=== PATIENT | male | born 1965 | race Caucasian/White ===

== ENCOUNTER 2023-07-29 10:08 | Outpatient (CLI) | payer MEDICAID, OTHER | END 2023-07-29 10:09 | disposition critical access hospital (66) | LOC: EMS 10:08 | DX: R73.9 Hyperglycemia, unspecified (principal); R53.83 Other fatigue; R25.1 Tremor, unspecified; R35.0 Frequency of micturition; R63.1 Polydipsia; R00.0 Tachycardia, unspecified; R06.82 Tachypnea, not elsewhere classified | CPT/HCPCS: A0425; A0429 ==

== ENCOUNTER 2023-07-29 10:28 | Inpatient (IN) | payer MEDICAID, OTHER ==
--- NOTE | 2023-07-29 10:43 | ED Physician Documentation ---
PD HPI ALTERED MENTAL STATUS - Stated complaint Stated Complaint: AMS/HIGH GLUCOSE - Chief complaint Chief Complaint: Neuro - History obtained from History obtained from: Patient, EMS - Additional information Additional information: Patient is a 57-year-old male with no significant past medical history presenting for evaluation of altered mental status for the past 1 week. Per EMS he lives in [facility] and is here visiting family and arrived a week ago. They thought he was just jet lag but has reportedly been more tired and having increasing urination over the last week. This morning though family was concerned and called EMS. EMS noted that his blood sugar was reading as high and that he was tachypneic in the 50s.Patient denies fever, cough, chest pain or shortness of air. No abdominal pain, vomiting or diarrhea. Does report increased thirst and urination which has been going on for at least 2 months. Review of Systems Constitutional: denies: Fever Cardiac: denies: Chest pain / pressure Respiratory: denies: Dyspnea GI: denies: Abdominal Pain PD PAST MEDICAL HISTORY - Present Medications Home Medications: Ambulatory Orders Medication Instructions Recorded Confirmed No Known Home Medications 07/29/23 07/29/23 - Allergies Allergies/Adverse Reactions: Allergies Allergy/AdvReac Type Severity Reaction Status Date / Time Penicillins Allergy Severe Anaphylaxis Verified 07/29/23 15:45 bee venom protein (honey bee) Allergy Intermediate Hives Verified 07/29/23 15:46 PD ED PE NORMAL - General General: No acute distress, Well developed/nourished. No: Alert and oriented X 3 (Alert and oriented to person and place; Confused on month but not year) - HEENT HEENT: Atraumatic, PERRL, EOMI, Moist mucous membranes, Pharynx benign - Neck Neck: Supple, no meningeal sign - Cardiac Cardiac: Other (Tachycardic, regular rhythm) - Respiratory Respiratory: No respiratory distress, Clear bilaterally - Abdomen Abdomen: Normal bowel sounds, Soft, Non tender, Non distended - Derm Derm: Warm and dry - Extremities Extremities: No edema, No calf tenderness / cord - Neuro Neuro: Alert and oriented X 3, er rn 2-12 intact, No motor deficit, No sensory deficit, Normal speech Results - Vitals Vitals: Vital Signs - 24 hr 07/29/23 07/29/23 07/29/23 10:35 11:10 11:12 Temperature 36.7 C Heart Rate 117 H 100 Respiratory 16 29 H Rate Blood Pressure 116/82 H 126/86 H O2 Saturation 96 87 L 93 If not protocol 2 : Oxygen Flow, liters/minute 07/29/23 07/29/23 07/29/23 11:30 12:00 12:21 Temperature Heart Rate 111 H 106 H 108 H Respiratory 26 H 32 H 27 H Rate Blood Pressure 151/90 H 121/90 H 127/90 H O2 Saturation 100 91 L 96 If not protocol 2 2 2 : Oxygen Flow, liters/minute Oxygen O2 Source Nasal cannula Oxygen Flow Rate 2 - EKG (time done) 1051 EKG releavant findings:: EKG personally interpreted by author of this note. Relevant findings are: Rate 110, sinus tachycardia, no STEMI, QTc 478, no prior for comparison - Labs Labs: Laboratory Tests 07/29/23 07/29/23 07/29/23 10:45 10:45 10:55 WBC 11.4 H RBC 5.02 Hgb 15.4 Hct 47.6 MCV 94.8 H MCH 30.7 MCHC 32.4 RDW 13.0 Plt Count 280 MPV 11.7 H Neut # (Auto) 8.9 H Lymph # (Auto) 1.6 [place] # (Auto) 0.9 Eos # (Auto) 0.0 Baso # (Auto) 0.1 Absolute Nucleated RBC 0.00 Nucleated RBC % 0.0 VBG pH VBG pCO2 VBG pO2 VBG HCO3 VBG Total CO2 VBG O2 Saturation VBG Base Excess Sodium Potassium Chloride Carbon Dioxide Anion Gap BUN Creatinine Estimated GFR (MDRD) Glucose Lactic Acid Calcium Magnesium Total Bilirubin AST ALT Alkaline Phosphatase Troponin I High Sens B-Natriuretic Peptide Total Protein Albumin Globulin Albumin/Globulin Ratio Lipase Urine Color Urine Clarity Urine pH Ur Specific [place] Urine Protein Urine Glucose (UA) Urine Ketones Urine Occult Blood Urine Nitrite Urine Bilirubin Urine Urobilinogen Ur Leukocyte Esterase Urine RBC Urine WBC Ur Squamous Epith Cells Urine Bacteria Ur Microscopic Review Urine Culture Comments Nasal Adenovirus (PCR) NOT DETECTED Nasal B. parapertussis DNA (PCR) NOT DETECTED Nasal Coronavir 229E PCR NOT DETECTED Nasal Coronavir HKU1 PCR NOT DETECTED Nasal Coronavir NL63 PCR NOT DETECTED Nasal Coronavir OC43 PCR NOT DETECTED Nasal Enterovir/Rhinovir PCR NOT DETECTED Nasal Influ A H1 2009 PCR DETECTED A Nasal Influenza B PCR NOT DETECTED Nasal Parainfluen 1 PCR NOT DETECTED Nasal Parainfluen 2 PCR NOT DETECTED Nasal Parainfluen 3 PCR NOT DETECTED Nasal Parainfluen 4 PCR NOT DETECTED Nasal RSV (PCR) NOT DETECTED Nasal B.pertussis DNA PCR NOT DETECTED Nasal C.pneumoniae (PCR) NOT DETECTED Marlon Human Metapneumo PCR NOT DETECTED Nasal M.pneumoniae (PCR) NOT DETECTED Nasal SARS-CoV-2 (PCR) NOT DETECTED Salicylates Urine Opiates Screen NEGATIVE Ur Buprenorphine Scrn NEGATIVE Ur Oxycodone Screen NEGATIVE Urine Methadone Screen NEGATIVE Acetaminophen Ur Barbiturates Screen NEGATIVE Ur Tricyclics Screen NEGATIVE Ur Phencyclidine Scrn NEGATIVE Ur Amphetamine Screen NEGATIVE U Methamphetamines Scrn NEGATIVE U Benzodiazepines Scrn NEGATIVE Urine Cocaine Screen NEGATIVE U Cannabinoids Screen NEGATIVE Ur Drug Screen Comment CUTOFF CONC BELOW: Ethyl Alcohol Serum Ketones 07/29/23 07/29/23 07/29/23 10:55 10:55 10:55 WBC RBC Hgb Hct MCV MCH MCHC RDW Plt Count MPV Neut # (Auto) Lymph # (Auto) [place] # (Auto) Eos # (Auto) Baso # (Auto) Absolute Nucleated RBC Nucleated RBC % VBG pH 7.347 VBG pCO2 42.3 VBG pO2 34.3 VBG HCO3 22.7 L VBG Total CO2 24.0 VBG O2 Saturation 66.7 VBG Base Excess -2.9 L Sodium 143 Potassium 5.0 H Chloride 104 Carbon Dioxide 26 Anion Gap 13.0 BUN 42 H Creatinine 1.7 H Estimated GFR (MDRD) 42 L Glucose 1138 H* Lactic Acid 3.5 H* Calcium 11.5 H Magnesium 2.8 H Total Bilirubin 0.7 AST 34 ALT 38 Alkaline Phosphatase 163 H Troponin I High Sens B-Natriuretic Peptide Total Protein 7.9 Albumin 4.3 Globulin 3.6 Albumin/Globulin Ratio 1.2 Lipase 84 H Urine Color Urine Clarity Urine pH Ur Specific [place] Urine Protein Urine Glucose (UA) Urine Ketones Urine Occult Blood Urine Nitrite Urine Bilirubin Urine Urobilinogen Ur Leukocyte Esterase Urine RBC Urine WBC Ur Squamous Epith Cells Urine Bacteria Ur Microscopic Review Urine Culture Comments Nasal Adenovirus (PCR) Nasal B. parapertussis DNA (PCR) Nasal Coronavir 229E PCR Nasal Coronavir HKU1 PCR Nasal Coronavir NL63 PCR Nasal Coronavir OC43 PCR Nasal Enterovir/Rhinovir PCR Nasal Influ A H1 2009 PCR Nasal Influenza B PCR Nasal Parainfluen 1 PCR Nasal Parainfluen 2 PCR Nasal Parainfluen 3 PCR Nasal Parainfluen 4 PCR Nasal RSV (PCR) Nasal B.pertussis DNA PCR Nasal C.pneumoniae (PCR) Marlon Human Metapneumo PCR Nasal M.pneumoniae (PCR) Nasal SARS-CoV-2 (PCR) Salicylates < 1.5 Urine Opiates Screen Ur Buprenorphine Scrn Ur Oxycodone Screen Urine Methadone Screen Acetaminophen 0.2 Ur Barbiturates Screen Ur Tricyclics Screen Ur Phencyclidine Scrn Ur Amphetamine Screen U Methamphetamines Scrn U Benzodiazepines Scrn Urine Cocaine Screen U Cannabinoids Screen Ur Drug Screen Comment Ethyl Alcohol < 10.0 Serum Ketones 07/29/23 07/29/23 07/29/23 10:55 10:55 11:05 WBC RBC Hgb Hct MCV MCH MCHC RDW Plt Count MPV Neut # (Auto) Lymph # (Auto) [place] # (Auto) Eos # (Auto) Baso # (Auto) Absolute Nucleated RBC Nucleated RBC % VBG pH VBG pCO2 VBG pO2 VBG HCO3 VBG Total CO2 VBG O2 Saturation VBG Base Excess Sodium Potassium Chloride Carbon Dioxide Anion Gap BUN Creatinine Estimated GFR (MDRD) Glucose Lactic Acid Calcium Magnesium Total Bilirubin AST ALT Alkaline Phosphatase Troponin I High Sens 23.9 H* B-Natriuretic Peptide 42 Total Protein Albumin Globulin Albumin/Globulin Ratio Lipase Urine Color LIGHT YELLOW Urine Clarity CLEAR Urine pH 6.0 Ur Specific [place] <=1.005 Urine Protein NEGATIVE Urine Glucose (UA) >=1000 H Urine Ketones TRACE Urine Occult Blood LARGE H Urine Nitrite NEGATIVE Urine Bilirubin NEGATIVE Urine Urobilinogen 0.2 (NORMAL) Ur Leukocyte Esterase NEGATIVE Urine RBC 0-5 Urine WBC 0-3 Ur Squamous Epith Cells FEW Squamous Urine Bacteria Few Ur Microscopic Review INDICATED Urine Culture Comments NOT INDICATED Nasal Adenovirus (PCR) Nasal B. parapertussis DNA (PCR) Nasal Coronavir 229E PCR Nasal Coronavir HKU1 PCR Nasal Coronavir NL63 PCR Nasal Coronavir OC43 PCR Nasal Enterovir/Rhinovir PCR Nasal Influ A H1 2009 PCR Nasal Influenza B PCR Nasal Parainfluen 1 PCR Nasal Parainfluen 2 PCR Nasal Parainfluen 3 PCR Nasal Parainfluen 4 PCR Nasal RSV (PCR) Nasal B.pertussis DNA PCR Nasal C.pneumoniae (PCR) [place]lon Human Metapneumo PCR Nasal M.pneumoniae (PCR) Nasal SARS-CoV-2 (PCR) Salicylates Urine Opiates Screen Ur Buprenorphine Scrn Ur Oxycodone Screen Urine Methadone Screen Acetaminophen Ur Barbiturates Screen Ur Tricyclics Screen Ur Phencyclidine Scrn Ur Amphetamine Screen U Methamphetamines Scrn U Benzodiazepines Scrn Urine Cocaine Screen U Cannabinoids Screen Ur Drug Screen Comment Ethyl Alcohol Serum Ketones 07/29/23 07/29/23 11:05 12:52 WBC RBC Hgb Hct MCV MCH MCHC RDW Plt Count MPV Neut # (Auto) Lymph # (Auto) [place] # (Auto) Eos # (Auto) Baso # (Auto) Absolute Nucleated RBC Nucleated RBC % VBG pH VBG pCO2 VBG pO2 VBG HCO3 VBG Total CO2 VBG O2 Saturation VBG Base Excess Sodium Potassium Chloride Carbon Dioxide Anion Gap BUN Creatinine Estimated GFR (MDRD) Glucose 869 H* Lactic Acid Calcium Magnesium Total Bilirubin AST ALT Alkaline Phosphatase Troponin I High Sens B-Natriuretic Peptide Total Protein Albumin Globulin Albumin/Globulin Ratio Lipase Urine Color Urine Clarity Urine pH Ur Specific [place] Urine Protein Urine Glucose (UA) Urine Ketones Urine Occult Blood Urine Nitrite Urine Bilirubin Urine Urobilinogen Ur Leukocyte Esterase Urine RBC Urine WBC Ur Squamous Epith Cells Urine Bacteria Ur Microscopic Review Urine Culture Comments Nasal Adenovirus (PCR) Nasal B. parapertussis DNA (PCR) Nasal Coronavir 229E PCR Nasal Coronavir HKU1 PCR Nasal Coronavir NL63 PCR Nasal Coronavir OC43 PCR Nasal Enterovir/Rhinovir PCR Nasal Influ A H1 2009 PCR Nasal Influenza B PCR Nasal Parainfluen 1 PCR Nasal Parainfluen 2 PCR Nasal Parainfluen 3 PCR Nasal Parainfluen 4 PCR Nasal RSV (PCR) Nasal B.pertussis DNA PCR Nasal C.pneumoniae (PCR) [place] Human Metapneumo PCR Nasal M.pneumoniae (PCR) Nasal SARS-CoV-2 (PCR) Salicylates Urine Opiates Screen Ur Buprenorphine Scrn Ur Oxycodone Screen Urine Methadone Screen Acetaminophen Ur Barbiturates Screen Ur Tricyclics Screen Ur Phencyclidine Scrn Ur Amphetamine Screen U Methamphetamines Scrn U Benzodiazepines Scrn Urine Cocaine Screen U Cannabinoids Screen Ur Drug Screen Comment Ethyl Alcohol Serum Ketones SMALL H PD Medical Decision Making - ED course Complexity details: reviewed results, re-evaluated patient, d/w patient, d/w family ED course: Pt with AMS. Lives in [place] and visiting family for 1 week. Tachycardic, afebrile. Answers some questions appropriately but otherwise appears confused. EMS noted high blood sugar. No history of DM. Labs including BC x 2, lactic, CBC, chemistries, troponin, BNP, resp swab, UA, tox labs, vbg reviewed. Significant for glucose of 1137. Does not appear to be in DKA. K 5, Mg 2.8. VBG with normal pH, small serum ketones. Likely HHS. Chest XR negative for pneumonia. No UTI. +Flu. CT head negative for bleed. CT Angio chest ordered as pt became hypoxic. No PE or infiltrate. Incident nodules which were discussed with pt and mother at bedside. Pt given 2L IV fluids and started on insulin. D/W Dr. Cook who will admit to ICU for further management. 1300 - Reviewed workup results with patient and his mother at the bedside. Patient gave permission to speak also with his mother present. Aware of incidental findings of right lung nodule seen on CT scan. Patient does smoke cigarettes. Patient and mother are aware that he needs a repeat scan in the next 12 months to Monitor the nodules. - Critical Care Time(min): 41 Time Includes: Direct patient care, Reassess patient, Document care Data interpretation: Labs, CXR, See progress note Departure - Departure Disposition: 66 [facility] DC/Xfer Clinical Impression: Hyperosmolar hyperglycemic state (HHS), Influenza A (H1N1), Acute respiratory failure with hypoxia, Altered mental status, Pulmonary nodules Condition: Critical Discharge Date/Time: 07/29/23 13:42
[2023-07-29] MEDS: SODIUM CHLORIDE 0.9% 2,000 ML IV STA (10:44)
[2023-07-29 11:05] LABS: VBG PCO2 42.3 mmHg (41-51); VBG PH 7.347 (7.31-7.41); VBG PO2 34.3 mmHg (25-47)
[2023-07-29 11:06] LABS: BASOPHILS # (AUTO) 0.1 10^3/uL (0.0-0.1); BASOPHILS % (AUTO) 0.4 %; HCT - HEMATOCRIT 47.6 % (42.0-52.0); HGB - HEMOGLOBIN 15.4 g/dL (14.0-18.0); LYMPHOCYTES # (AUTO) 1.6 10^3/uL (1.5-3.5); LYMPHOCYTES % (AUTO) 13.7 %; MEAN CORPUSCULAR HEMOGLOBIN 30.7 pg (27.0-31.0); MEAN CORPUSCULAR HGB CONC 32.4 g/dL (32.0-36.0); MEAN CORPUSCULAR VOLUME 94.8 fL (80.0-94.0); MEAN PLATELET VOLUME 11.7 fL (7.4-11.4); MONOCYTES # (AUTO) 0.9 10^3/uL (0.0-1.0); MONOCYTES % (AUTO) 7.8 %; NEUTROPHILS # (AUTO) 8.9 10^3/uL (1.5-6.6); NEUTROPHILS % (AUTO) 77.6 %; PLT - PLATELET COUNT 280 10^3/uL (130-450); RED BLOOD COUNT 5.02 10^6/uL (4.70-6.10); VBG BASE EXCESS -2.9 mmol/L (-2 - +2); VBG HCO3 22.7 mmol/L (23-28); VBG OXYGEN SATURATION 66.7 % (60-80); WHITE BLOOD COUNT 11.4 x10^3/uL (4.8-10.8)
[2023-07-29 11:16] LABS: BILIRUBIN,URINE NEGATIVE (NEGATIVE); GLUCOSE, URINE (UA) >=1000 mg/dL (NEGATIVE); KETONES,URINE (UA) TRACE mg/dL (NEGATIVE); LEUKOCYTE ESTERASE, URINE NEGATIVE (NEGATIVE); NITRITE,URINE NEGATIVE (NEGATIVE); OCCULT BLOOD,URINE LARGE (NEGATIVE); PROTEIN,URINE NEGATIVE (NEGATIVE); UROBILINOGEN,URINE 0.2 (NORMAL) E.U./dL (NORMAL)
[2023-07-29 11:18] LABS: ACETAMINOPHEN 0.2 ug/mL; ETOH - ETHANOL < 10.0 mg/dL; LIPASE 84 U/L (11-82); MAGNESIUM 2.8 mg/dL (1.7-2.3)
[2023-07-29 11:19] LABS: CLARITY,URINE CLEAR (CLEAR)
[2023-07-29 11:24] LABS: AMPHETAMINE SCREEN,URINE NEGATIVE (NEGATIVE); BARBITURATE SCREEN,UR NEGATIVE (NEGATIVE); BENZODIAZEPINES SCREEN, URINE NEGATIVE (NEGATIVE); BUPRENORPHINE SCREEN, URINE NEGATIVE (NEGATIVE); COCAINE SCREEN URINE NEGATIVE (NEGATIVE); METHADONE SCREEN, URINE NEGATIVE (NEGATIVE); METHAMPHETAMINES SCREEN, URINE NEGATIVE (NEGATIVE); OPIATE SCREEN, URINE NEGATIVE (NEGATIVE); OXYCODONE SCREEN, URINE NEGATIVE (NEGATIVE); THC CANNABINOID SCREEN, URINE NEGATIVE (NEGATIVE); TRICYCLIC ANTIDEPRESSANT,URINE NEGATIVE (NEGATIVE)
[2023-07-29 11:29] LABS: BACTERIA,URINE Few /HPF (None Seen); RBC,URINE 0-5 /HPF (0-5); SQUAMOUS EPITHELIAL CELL,UR FEW Squamous (<= Few); WBC,URINE 0-3 /HPF (0-3)
--- NOTE | 2023-07-29 11:29 | XRAY Report ---
PROCEDURE: Chest 1V INDICATIONS: AMS/DKA TECHNIQUE: One view of the chest was acquired. COMPARISON: None. FINDINGS: Surgical changes and devices: None. Lungs and pleura: No pleural effusions or pneumothorax. Patchy bibasilar atelectasis versus pneumoni a. Mediastinum: Mediastinal contours appear normal. Heart size is normal. Bones and chest wall: No suspicious bony lesions. Overlying soft tissues appear unremarkable. IMPRESSION: Patchy bibasilar atelectasis versus pneumonia. Progress films are recommended until clear. Reviewed by: Finesse Darby MD on 07/29/2023 11:27 AM PDT Approved by: Finesse Darby MD on 07/29/2023 11:27 AM PDT Station ID: [id number]
[2023-07-29 11:30] LABS: ALBUMIN 4.3 g/dL (3.2-5.5); ALBUMIN/GLOBULIN RATIO 1.2 (1.0-2.2); ALKALINE PHOSPHATASE 163 IU/L (42-121); ALT ALANINE AMINOTRANSFERASE 38 IU/L (10-60); AST ASPARTATE AMINOTRANSFERASE 34 IU/L (10-42); BILIRUBIN,TOTAL 0.7 mg/dL (0.2-1.0); BUN - BLOOD UREA NITROGEN 42 mg/dL (6-20); CALCIUM 11.5 mg/dL (8.5-10.3); CARBON DIOXIDE - CO2 26 mmol/L (21-32); CHLORIDE 104 mmol/L (101-111); CREATININE 1.7 mg/dL (0.6-1.3); GFR - MDRD 42 (>89); GLUCOSE 1138 mg/dL (74-104); SALICYLATE < 1.5 mg/dL; SODIUM 143 mmol/L (135-145); TOTAL PROTEIN 7.9 g/dL (6.4-8.9)
[2023-07-29] MEDS ORDERED: iohexoL-300 100 ML VIAL ONE (11:38)
[2023-07-29] MEDS ORDERED: INSULIN REGULAR IN 0.9 % NS 100 UNIT/100 ML BAG IV ONE (11:43)
[2023-07-29] MEDS: INSULIN REGULAR HUMAN 300 UNIT/3 ML VIAL IVP STA (11:45)
[2023-07-29] MEDS: INSULIN REGULAR IN 0.9 % NS 100 UNIT/100 ML BAG IV STA ×2 (11:47→13:50)
[2023-07-29 12:00] LABS: B. PARAPERTUSSIS- RESP PCR PAN NOT DETECTED; B. PERTUSSIS- RESP PCR PANEL NOT DETECTED; C. PNEUMONIAE- RESP PCR PANEL NOT DETECTED; CORONAVIRUS 229E-RESP PCR NOT DETECTED; CORONAVIRUS HKU1-RESP PCR NOT DETECTED; CORONAVIRUS NL63-RESP PCR NOT DETECTED; CORONAVIRUS OC43-RESP PCR NOT DETECTED; HUMAN METAPNEUMOVIRUS NOT DETECTED; INFLUENZA A H1 2009- RESP PCR DETECTED; INFLUENZA B - RESP PCR PANEL NOT DETECTED; M. PNEUMONIAE- RESP PCR PANEL NOT DETECTED; PARAINFLUENZA VIRUS 1 NOT DETECTED; PARAINFLUENZA VIRUS 2 NOT DETECTED; PARAINFLUENZA VIRUS 3 NOT DETECTED; PARAINFLUENZA VIRUS 4 NOT DETECTED; RHINOVIRUS/ENTEROVIRUS NOT DETECTED; RSV- RESP PCR PANEL NOT DETECTED; SARS-CoV-2 -RESP PCR PANEL NOT DETECTED
--- NOTE | 2023-07-29 12:24 | CT Report ---
PROCEDURE: Head WO INDICATIONS: AMS/DKA TECHNIQUE: Noncontrast 4.5 mm thick angled axial sections acquired from the foramen magnum to the vertex. For r adiation dose reduction, the following was used: automated exposure control, adjustment of mA and/or kV according to patient size. COMPARISON: None. FINDINGS: Image quality: Excellent. CSF spaces: Basal cisterns are patent. No extra-axial fluid collections. Ventricles are normal in size and shape. Brain: No midline shift. No intracranial masses or hemorrhage. Springer-white matter interface is norm al. Skull and face: Calvarium and visualized facial bones are intact, without suspicious lesions. Sinuses: Visualized sinuses and mastoids are clear. IMPRESSION: No acute intracranial pathology. Reviewed by: Russell Salmon MD on 07/29/2023 12:23 PM PDT Approved by: Russell Salmon MD on 07/29/2023 12:23 PM PDT Station ID: [id number]
--- NOTE | 2023-07-29 12:42 | CT Report ---
PROCEDURE: Angio Chest INDICATIONS: SOA/AMS/hypoxia CONTRAST: Omni 300 80ml TECHNIQUE: After the administration of intravenous contrast, 2 mm axial images were acquired from the pulmonary apices to the posterior costophrenic angles during the arterial phase. In addition, 1 mm lung kernel and 5 mm soft tissue kernel reconstructions were performed. 3-dimensional coronal oblique maximum int ensity projection (MIP) reformats, 8 mm axial MIP, and 5 mm coronal and sagittal MPR reformats were t hen performed through the thorax. For radiation dose reduction, the following was used: automated exp osure control, adjustment of mA and/or kV according to patient size. COMPARISON: None. FINDINGS: Image quality: Excellent. Large vessels: No filling defects within the opacified pulmonary arteries, accounting for motion and contrast timing. No evidence of acute aortic syndrome or aortic aneurysm. Lungs and pleura: No consolidation. No pleural effusions. No pneumothorax. Scattered 2 mm nodules in the right lung are too small to characterize. Mediastinum: Heart size is normal. No pericardial effusion. No large vessel abnormality. No mediastin al adenopathy by size criteria. Chest wall and lower neck: Thyroid is unremarkable. No axillary or supraclavicular adenopathy by size . Bones: No aggressive osseous abnormality. Upper Abdomen: Unremarkable. IMPRESSION: 1. No acute pulmonary blood. 2. No acute pulmonary process. 3. Scattered tiny 2 mm nodules in the right lung, too small to characterize, statistically likely to be benign. Comment: If patient has risk factors for malignancy, consider 12 month follow-up CT chest. Reviewed by: Finesse Darby MD on 07/29/2023 12:41 PM PDT Approved by: Finesse Darby MD on 07/29/2023 12:41 PM PDT Station ID: [id number]
[2023-07-29] MEDS ORDERED: ACETAMINOPHEN 325 MG TABLET PO PRN (13:05)
[2023-07-29] MEDS ORDERED: ONDANSETRON ODT 4 MG TABLET TL PRN (13:05)
[2023-07-29] MEDS ORDERED: oxyCODONE 5 MG TABLET PO PRN (13:05)
[2023-07-29] MEDS ORDERED: ONDANSETRON 4 MG/2 ML VIAL IVP PRN (13:05)
--- NOTE | 2023-07-29 13:24 | PHARMACY PROGRESS NOTE ---
- Best Possible Medication History Admit Date and Time: 07/29/23 7808 Processed by: Nursing Medications reviewed in ED?: Yes Medication History completed: Yes Patient Interview: Completed As the person ultimately responsible for medication therapy, providers are able to order a medication from an existing home medication list in [facility] via the "Reconcile Routine" prior to Confirmation of that medication by support associate. Such practice is discouraged except when the physician, in their clinical judgment, deems that a medical need exists for a medication without regard to previous use.
[2023-07-29] MEDS ORDERED: INSULIN REGULAR IN 0.9 % NS 100 UNIT/100 ML BAG IV SCH (14:00)
[2023-07-29] MEDS: PANTOPRAZOLE 40 MG TABLET PO SCH (14:17)
[2023-07-29] MEDS: SODIUM CHLORIDE FLUSH 0.9% 10 ML SYRINGE IVP PRN (14:23)
[2023-07-29] MEDS: SODIUM CHLORIDE 0.9% 1,000 ML IV SCH (14:23)
[2023-07-29] MEDS: iohexoL-300 100 ML VIAL IVP ONE (14:44)
[2023-07-29 14:51] LABS: VBG BASE EXCESS -1.3 mmol/L (-2 - +2); VBG HCO3 23.4 mmol/L (23-28); VBG OXYGEN SATURATION 76.5 % (60-80); VBG PCO2 39.7 mmHg (41-51); VBG PH 7.389 (7.31-7.41); VBG PO2 37.8 mmHg (25-47); VBG TOTAL CO2 24.7 mmol/L (24-29)
[2023-07-29 15:31] LABS: MAGNESIUM 2.9 mg/dL (1.7-2.3); PHOSPHORUS 2.2 mg/dL (2.5-5.0)
[2023-07-29] MEDS: NEUTRA-PHOS 250 MG TABLET PO SCH (16:22)
[2023-07-29] MEDS: POTASSIUM CHLOR 10 MEQ/100 ML 10 MEQ/100 ML BAG IV ONE (16:24)
--- NOTE | 2023-07-29 17:00 | HISTORY & PHYSICAL EXAMINATION ---
Chief Complaint - Chief Complaint Chief Complaint: Altered mental status, memory loss, polydipsia, polyphagia, polyuria History of Present Illness - Admitted From Admitted From:: Father's house via EMS - History Obtained From Records Reviewed: [facility] History obtained from: Dr. Rashid and the patient Exam Limitations: Word finding difficulties, scattered thought process - History of Present Illness HPI Comment/Other: This is a gentleman who lives in one of the [facility] in [facility] and just got back July 20. He is here to visit his dad. Dad's been failing with vascular dementia. He was brought in by EMS because family has noted that his speech has become delayed. He was getting confused with words, dates, and events. The patient tells me that he is healthy. He has no history of diabetes, high blood pressure, cholesterol problems. He has never been hospitalized. He has lived in [place] for approximately 12 to 13 years. He is to an national. She is unable to have children and he decided to moved to [facility] to be near her family after he retired so that she could run an orphanage. They have about 45 kids. For approximately 3 months he has noted a dry mouth. A parched tongue. For about 2 months he has noted hoarseness. The only thing that would soothe his mouth was ice cream. And his thirst was quenched with lots of juice. He is also been eating a lot of fast food. He saw a friend of his in [facility] who is an physician and he describes a laryngoscopy. They looked at his vocal cords and everything was "normal". He has severe increased urinary frequency. He also has incontinence and urgency. He will literally hold onto the tip of his penis and pinch it so that urine does not come out but he has not been making it to the toilet for quite some time. That started in the last 2 weeks. He denies fever, chills. He has had a phlegmy cough for a few days. The cough is occasionally quite copious. He is hoarseness comes and goes depending on the cough. For a few moments his voice will clear even though he speaks with a laryngitic tone, but then it completely disappears when the phlegm comes. There is been no unexpected weight changes with this. No sweats, no fevers. He acknowledges that his mentation is not correct. He says he has been struggling with words. But he denies focal deficits. Denies facial dysesthesias. His legs are numb but they have been numb "forever" but he cannot remember why. He his belly feels full and distended. Feels like he has not a bowel movement in a few days. But no abdominal pain. EMS brought him to the emergency room when family was concerned. Temperature was 36.7, heart rate 117, blood pressure 116/82, respirations 16 and he is 96% saturated on room air. He is a 6 foot tall white male, well-groomed, well-adal shed, 102.5 kg. His main fixation is water. He cannot get enough water and ice. The ER provider described him as well-nourished well-developed. Alert and oriented x 3. Confused on the month but not the year. She describes moist mucous membranes but I find and be very dry. Supple neck. Tachycardic. Clear lungs. A soft nontender abdomen. Nondistended with normal bowel sounds. No calf tenderness. White cell count is 11.4. Hemoglobin 15.4. Platelets 280. Potassium 5.0. BUN 42, creatinine 1.7. Glucose is 1138. Lactic acid 3.5. Calcium 11.5. Magnesium 2.8. Troponin 23.9. Lipase 84. Urinalysis ask glucosuria, occult blood, trace ketones. No bacteria. No culture will be done. Venous blood gas has a pH of 7.34, pCO2 42, bicarb 22 base excess -2.9. Viral panel swab is positive for influenza A. Toxicology screen is negative for opiates, barbiturates, amphetamines, can nabinoids, ethyl alcohol, and serum ketones are small amount. Chest x-ray has patchy bibasilar atelectasis versus pneumonia. They are recommending a repeat film until he is clear. Head CT was done because of the altered mental status and there is no acute intracranial pathology. Because of altered mental status with hypoxia in the ER a chest CT with pulmonary angiogram was done. No PEs. No consolidation or effusions or pneumothorax. Small scattered 2 mm nodules in the right lung. History - Past Medical History Cardiovascular: reports: None Respiratory: reports: Other (COVID. Cannot remember when. Took Paxlovid) Neuro: reports: Migraines (Induced by taking Paxlovid) Endocrine/Autoimmune: reports: None GI: reports: None : reports: None, Kidney stones HEENT: reports: None Psych: reports: None Musculoskeletal: reports: None Derm: reports: None MRSA Hx?: No - Family & Social History Family History Comment/Other: Mom and dad are . Dad has a history of vascular dementia and diabetes. Both mom is completely healthy other than being overweight. 3 siblings. 1 brother supremely obese. 1 brother with diabetes. No children Living arrangement: At home Living Situation: With spouse/s.o. 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 Never really smoked. Did not have a problem with alcohol abuse. Denies recreational substance abuse. to his first . Retired 13 years ago and they now live in [place] with her family. - Substance History Use: Uses substance without health or social issues: NONE Abuse: Recurrent use of substance despite neg consequences: NONE Dependence: Experiences withdrawal or developed tolerances: NONE - POLST Patient has POLST: No POLST Status: Full Code Meds/Allgy - Home Medications Home Medications: Ambulatory Orders Medication Instructions Recorded Confirmed No Known Home Medications 07/29/23 07/29/23 - Allergies Allergies/Adverse Reactions: Allergies Allergy/AdvReac Type Severity Reaction Status Date / Time Penicillins Allergy Severe Anaphylaxis Verified 07/29/23 15:45 bee venom protein (honey bee) Allergy Intermediate Hives Verified 07/29/23 15:46 Review of Systems - Constitutional Constitutional: reports: Fatigue, Malaise, Weakness - Eyes Eyes: denies: Pain, Irritation, Amaurosis, Blurred vision, Vision loss, Dipolpia - Ears, Nose & Throat Ears, Nose & Throat: reports: Hoarseness. denies: Ear pain, Hearing loss, Hearing aids, Tinnitus, Nasal pain, Nasal discharge, Nasal obstruction, Nasal congestion, Postnasal drainage, Dentures - Cardiovascular Cariovascular: reports: Chest pain (When he coughs. Left-sided.), Syncope (Once when he took the Paxlovid), Other (Likes to sleep with 2 or 3 pillows but can fall asleep and wake up flat on his back and is comfortable.). denies: Irregular heart rate, Palpitations, Edema, Exertional dyspnea, Decr. exercise tolerance - Respiratory Respiratory: reports: Cough, Sputum production, Wheezing (Has yearly bronchitis.). denies: Snoring, Hemoptysis, Orthopnea, SOB at rest, SOB with exertion - Gastrointestinal Gastrointestinal: reports: Constipation, Other (Had a colonoscopy in the past). denies: Abdominal pain, Abdominal distention, Diarrhea, Change in bowel habits, Rectal bleeding - Genitourinary Genitourinary: reports: Dysuria, Frequency, Urgency, Incontinence, Nocturia. denies: Flank pain - Musculoskeletal Musculoskeletal: reports: Muscle aches, Other (L groin pain) - Integumentary Integumentary: reports: Rash (groin) - Neurological Neurological: reports: General weakness, Headache, Memory problems (that may have only started in the last few weeks.), Other (can't remember words in the last few weeks). denies: Focal weakness, Dizziness, Abnormal gait, Seizures, Slurred speech - Psychiatric Psychiatric: denies: Depression, Anxiety, Suicidal, Delusions, Hallucinations - Endocrine Endocrine: reports: Polyuria, Polydypsia, Polyphagia - Hematologic/Lymphatic Hematologic/Lymphatic: denies: Anemia, Bruising, Petechiae, Blood clots, Lymphadenopathy Prior Level of Functionality: independent with activities of daily living. Drives a car. Runs a [employer]. Pays bills. Got on a plane with [employer] and [employer] air without difficulty. Exam - Vital Signs Reviewed Vital Signs: Yes Vital Signs: Vital Signs x48h Temp Pulse Pulse Resp BP BP Pulse Ox 07/29/23 16:00 119 H 18 107/79 96 07/29/23 15:00 112 H 17 121/103 H 96 07/29/23 14:33 105 H 30 H 118/94 H 96 07/29/23 13:50 36.5 C 106 H 29 H 118/76 94 07/29/23 13:31 111 H 36 H 124/85 H 93 07/29/23 12:21 108 H 27 H 127/90 H 96 07/29/23 12:00 106 H 32 H 121/90 H 91 L 07/29/23 11:30 111 H 26 H 151/90 H 100 07/29/23 11:12 93 07/29/23 11:10 100 29 H 126/86 H 87 L 07/29/23 10:35 36.7 C 117 H 16 116/82 H 96 O2 Flow Rate 07/29/23 16:00 4 07/29/23 15:00 4 07/29/23 14:33 4 07/29/23 13:50 4 07/29/23 13:31 2 07/29/23 12:21 2 07/29/23 12:00 2 07/29/23 11:30 2 07/29/23 11:12 2 07/29/23 11:10 07/29/23 10:35 - Physical Exam General Appearance: positive: Alert, Other (Well-nourished well-developed obese white male, really hates the blood draws and yells at the blood tech and I have to hold his hand. He yells not in anger but in fear. Word finding difficulty is evident. Occasional dropped sentences. Scattered thought process. Occasional bizarre sentence ideas) Eyes Bilateral: positive: PERRL, EOMI ENT: positive: Other (Severely dry tongue and oral mucosa. Lips are cracked.Very hoarse voice that goes in and out with volume) Neck: positive: No JVD. negative: Stiff neck Respiratory: positive: No respiratory distress, Wheezes (The end of an exhalat ion), Other (2-3 episodes of a spasmodic cough productive of thick white phlegm). negative: Rales, Rhonchi Cardiovascular: positive: Regular rate & rhythm, Tachycardia Peripheral Pulses: positive: 1+ Abdomen: positive: Non-tender, No organomegaly, Nml bowel sounds, No distention, Other (Protuberant abdominal pannus. Obese. Soft.) Skin: positive: Warm, Dry Extremities: positive: Full ROM, No pedal edema, Other (Superficial perforating varicosities of both medial malleoli. Some varicosities changes left leg. But there is no venous stasis changes. No redness. Homans negative.) Neurologic/Psychiatric: positive: Oriented x3, CN's nml (2-12), Motor nml, Sensation nml, Disoriented to time, Slurred/abnml speech Conclusion/Plan - Problem List (1) DKA, type 2 Conclusion/Plan: The initial thought that he had a hyperosmolar syndrome. However I do find him to be acidotic with ketones. He is primarily hyperosmolar but I will treat him as ketotic. This is a new diagnosis for him. I do not believe this is a secondary disease. He seems to have had symptoms for at least 3 months. Current worseing may be due to influenza A. I am not finding other infection. Troponin is mildly elevated. Plan: Inpatient status Insulin drip with 0.9NS/D5 for fluids, potassium and magnesium and calcium checks with supplementation Check A1c Nutrition consult. This patient will need intensive diabetic education over the next few weeks before he goes back to [facility]. Tamiflu Repeat Troponin Qualifiers: Diabetes mellitus complication detail: without coma Qualified Code(s): E11.10 - Type 2 diabetes mellitus with ketoacidosis without coma (2) Severe dehydration Conclusion/Plan: Physical exam has Fissured dry tongue. Dry oral mucosa. Creat is 1.7 Plan: Patient is n.p.o. for food. But I told him he could drink ice water. I have also offered him frozen popsicles if they are sugar-free. I also expect that the insulin drip with IV fluids will also correct his fluid deficit. Amazingly his creatinine is only 1.7. [place] so [place] difficult to say if this creatinine is due for him. But I expect it is. Will continue to follow electrolytes on a daily basis. Supplement as needed. Avoid nephrotoxic agents. (3) Hypercalcemia Conclusion/Plan: At times hypercalcemia can also give altered mental status. This may be only associated because of his DKA. Plan: Continue to monitor levels as we treat his sugar and phosphorus and potassium. Check intact PTH (4) Overflow incontinence Conclusion/Plan: I did not do a rectal exam to check his prostate. But that might be a good idea. I will also check PSA. Urinalysis is negative for infection. Most likely urge incontinence and overflow incontinence is from his hyperglycemia. Glucose can act to give cystitis. (5) Altered mental status Conclusion/Plan: CT of his head is negative for any acute intracranial pathology. Most likely he is mimicking TIA symptoms due to the hyperglycemia. I expect that his symptoms will resolve once his sugar gets lower.His toxicology screen is negative for recreational substances.White cell count is elevated but urinalysis negative. And the chest CT does not show pneumonia. Abdominal exam is benign. With these 3 things I think he does not have a current bacterial infection. He is influenza A may be contributing. 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 He was told that there were no lesions on his vocal cords and that they had normal movement. This has been going on for 3 months. I am not feeling any neck masses. Specifically are not feeling any thyroid masses. A large thyroid mass could be affecting his recurrent laryngeal nerve. Could he have Fannie of the vocal cords? His phonation comes and goes during my exam. It will get worse and worse until he coughs and brings up phlegm. Then he clears momentarily. He does not have any dysphagia with this. Plan: Soft tissue CT of the neck when he comes off the insulin drip. (9) History of bronchitis Conclusion/Plan: Currently with influenza A. He says he gets a bronchitis every year. Chest x- ray and CT are clear of pneumonia. He is on Tamiflu. I will give him 1 dose of steroids, and start as needed albuterol. This time his phlegm is clear, he does not have a fever. I will hold off on antibiotics. - Lab Results Lab results reviewed: Yes Fish Bones: 07/29/23 10:55 07/29/23 15:51 - Diagnostic Imaging Results Diagnostic Imaging Results: positive: Final report reviewed - EKG Results EKG Interpreted Independently: No - Other Other Results/Comments: This document was made in part using voice recognition software. While efforts are made to proofread this document, sound alike and grammatical errors may occur. Core Measures - Anticipated LOS I expect patient to be DC'd or transferred within 96 hours.: Yes - DVT/VTE - Prophylaxis VTE/DVT Prophylaxis med ordered at admit?: Yes
[2023-07-29 17:13] LABS: AMPHETAMINE SCREEN,URINE NEGATIVE (NEGATIVE); BARBITURATE SCREEN,UR NEGATIVE (NEGATIVE); BENZODIAZEPINES SCREEN, URINE NEGATIVE (NEGATIVE); BUPRENORPHINE SCREEN, URINE NEGATIVE (NEGATIVE); COCAINE SCREEN URINE NEGATIVE (NEGATIVE); METHADONE SCREEN, URINE NEGATIVE (NEGATIVE); METHAMPHETAMINES SCREEN, URINE NEGATIVE (NEGATIVE); OPIATE SCREEN, URINE NEGATIVE (NEGATIVE); OXYCODONE SCREEN, URINE NEGATIVE (NEGATIVE); THC CANNABINOID SCREEN, URINE NEGATIVE (NEGATIVE); TRICYCLIC ANTIDEPRESSANT,URINE NEGATIVE (NEGATIVE)
[2023-07-29] MEDS ORDERED: ALBUTEROL NEB 2.5 MG/3 ML INH PRN (17:30)
[2023-07-29] MEDS: methylPREDNISolone SUCCINATE 40 MG/ML VIAL IVP SCH (18:03)
[2023-07-29] MEDS: SODIUM CHLORIDE FLUSH 0.9% 10 ML SYRINGE IVP SCH (18:14)
[2023-07-29] MEDS: OSELTAMIVIR 75 MG CAPSULE PO SCH (20:10)
[2023-07-29] MEDS: NYSTATIN POWDER 15 GM TOP SCH (20:18)
[2023-07-29] MEDS: POTASSIUM CHLOR 10 MEQ/100 ML 10 MEQ/100 ML BAG IV SCH (20:34)
[2023-07-29 20:54] LABS: ESTIMATED AVERAGE GLUCOSE 332 mg/dL (70-100); HEMOGLOBIN A1c% 13.2 % (4.27-6.07)
[2023-07-29] MEDS: INSULIN REGULAR HUMAN 100 UNIT in SODIUM CHLORIDE 0.9% 100ML 99 ML IV SCH (22:08)
[2023-07-29] MEDS: DEXTROSE 5%-0.9% NACL 1,000 ML IV SCH (22:11)
[2023-07-30 05:04] LABS: BASOPHILS % (AUTO) 0.2 %; HCT - HEMATOCRIT 41.4 % (42.0-52.0); HGB - HEMOGLOBIN 13.4 g/dL (14.0-18.0); LYMPHOCYTES # (AUTO) 2.3 10^3/uL (1.5-3.5); LYMPHOCYTES % (AUTO) 16.9 %; MEAN CORPUSCULAR HEMOGLOBIN 31.1 pg (27.0-31.0); MEAN CORPUSCULAR HGB CONC 32.4 g/dL (32.0-36.0); MEAN CORPUSCULAR VOLUME 96.1 fL (80.0-94.0); MEAN PLATELET VOLUME 10.8 fL (7.4-11.4); MONOCYTES # (AUTO) 0.3 10^3/uL (0.0-1.0); MONOCYTES % (AUTO) 2.5 %; PLT - PLATELET COUNT 247 10^3/uL (130-450); RED BLOOD COUNT 4.31 10^6/uL (4.70-6.10); RED CELL DISTRIBUTION WIDTH 13.2 % (12.0-15.0); WHITE BLOOD COUNT 13.8 x10^3/uL (4.8-10.8)
[2023-07-30 05:05] LABS: CALCIUM, IONIZED 1.04 mmol/L (1.15-1.33); VBG PH 7.439 (7.31-7.41)
[2023-07-30 05:22] LABS: BUN - BLOOD UREA NITROGEN 35 mg/dL (6-20); CALCIUM 9.2 mg/dL (8.5-10.3); CARBON DIOXIDE - CO2 29 mmol/L (21-32); CHLORIDE 114 mmol/L (101-111); CREATININE 1.3 mg/dL (0.6-1.3); GFR - MDRD 57 (>89); GLUCOSE 156 mg/dL (74-104); MAGNESIUM 1.9 mg/dL (1.7-2.3); PHOSPHORUS 4.4 mg/dL (2.5-5.0); SODIUM 148 mmol/L (135-145)
[2023-07-30 05:34] LABS: KETONES, SERUM (ACETEST) NEGATIVE (NEGATIVE)
[2023-07-30] MEDS: POTASSIUM CHLOR 10 MEQ/100 ML 10 MEQ/100 ML BAG IV SCH (06:05)
[2023-07-30] MEDS: CALCIUM CARBONATE CHEW 500 MG TABLET PO SCH (06:12)
[2023-07-30] MEDS: DEXTROSE 5% 1,000 ML IV SCH (08:04)
[2023-07-30] MEDS: INSULIN GLARGINE-YFGN 300 UNIT/3 ML PEN SUBQ SCH (08:55)
[2023-07-30] MEDS: INSULIN LISPRO 300 UNIT/3 ML PEN SUBQ SCH ×4 (08:59→21:35)
[2023-07-30] MEDS: PANTOPRAZOLE 40 MG TABLET PO SCH (09:01)
[2023-07-30] MEDS: ENOXAPARIN 40 MG/0.4 ML SYRINGE SUBQ SCH (09:02)
--- NOTE | 2023-07-30 12:55 | PROVIDER PROGRESS NOTE ---
Assessment/Plan - Problem List (1) DKA, type 2 Qualifiers: Diabetes mellitus complication detail: without coma Qualified Code(s): E11.10 - Type 2 diabetes mellitus with ketoacidosis without coma Assessment/Plan: --Has been weaned off of the insulin infusion. --Started on Lantus 20 units with 5 units short acting TID + SSI. --A1c is 13. --C-peptide is pending. --Diabetic education ordered. --Will order urine microalbumin and Lipid panel. (2) Altered mental status Qualifiers: Altered mental status type: disorientation Qualified Code(s): R41.0 - Disorientation, unspecified Assessment/Plan: --Resolved with correction of blood glucose. (3) Hoarseness Assessment/Plan: --CT soft tissue neck and CT abd/pelvis pending. --He would benefit from an EGD as an outpatient to rule out Malcolm's esophagus and H. pylori infection. --Had a laryngoscopy in [facility] which was unremarkable. (4) Hypercalcemia Assessment/Plan: --Resolved after fluid administration. --PTH, PTHrp, Vit D pending. (5) Influenza A (H1N1) Assessment/Plan: --On Tamiflu. Remains on supplemental oxygen. --Continue supportive cares. - Current Meds Current Meds: Current Medications Generic Name Dose Route Start Last Admin Trade Name Freq PRN Reason Stop Dose Admin Enoxaparin Sodium 40 mg 07/30/23 09:00 07/30/23 09:02 Enoxaparin 40 Mg/0.4 Ml Syringe SUBQ 40 mg DAILY JORGE LUIS Administration Insulin Glargine-yfgn 20 unit 07/30/23 09:00 07/30/23 08:55 Insulin Glargine-Yfgn 300 Unit/3 Ml Pen SUBQ 20 unit DAILY JORGE LUIS Administration Insulin Human Lispro 1 - 9 unit 07/30/23 08:00 07/30/23 11:59 Insulin Lispro 300 Unit/3 Ml Pen SUBQ 1 unit 0800,1200,1700,2100 JORGE LUIS Administration Protocol Insulin Human Lispro 5 unit 07/30/23 08:00 07/30/23 12:12 Insulin Lispro 300 Unit/3 Ml Pen SUBQ 5 unit [id number] JORGE LUIS Administration Protocol Nystatin 1 applic 07/29/23 21:00 07/29/23 20:18 Nystatin Powder 15 Gm TOP 1 applic BID JORGE LUIS Administration Oseltamivir Phosphate 75 mg 07/29/23 21:00 07/30/23 09:02 Oseltamivir 75 Mg Capsule PO 08/03/23 09:01 75 mg BID JORGE LUIS Administration Pantoprazole Sodium 40 mg 07/30/23 08:00 07/30/23 09:01 Pantoprazole 40 Mg Tablet PO Not Given QDAC JORGE LUIS Sodium Chloride 10 ml 07/29/23 17:00 07/30/23 12:18 Sodium Chloride Flush 0.9% 10 Ml Syringe IVP 10 ml 0100,0900,1700 JORGE LUIS Administration Sodium Chloride 10 ml 07/29/23 13:05 07/29/23 14:23 Sodium Chloride Flush 0.9% 10 Ml Syringe IVP 10 ml PRN PRN Administration NEEDED PER PROVIDER ORDERS - Lab Result Fish Bone Diagrams: 07/30/23 04:47 07/30/23 04:47 - Other Other Results/Comments: Critical care time 43 minutes. - Additional Planning My Orders: My Active Orders 07/30/23 Dietitian to Assess and Manage Nutrition [CONS] Routine 07/30/23 06:57 Blood Glucose Checks - Eating [RC] 0800,1200,1700,2100 Initiate Hypoglycemia Protocol [RC] .protocol 07/30/23 06:59 Diabetic Education [RC] ONCE 07/30/23 08:00 Insulin Lispro [Humalog Kwikpen U-100] 1 - 9 unit SUBQ 0800,1200,1700,2100 Insulin Lispro [Humalog Kwikpen U-100] 5 unit SUBQ QDBREAKFAST Pantoprazole [Protonix] 40 mg PO QDAC 07/30/23 08:31 Abdomen/Pelvis W [CT] Routine 07/30/23 09:00 Insulin Glargine-Yfgn [Semglee] 20 unit SUBQ DAILY 07/30/23 09:06 1,25-DIHYDROXY VITAMIN D BY MS [REFLAB] DAILY C-PEPTIDE SERUM [REFLAB] DAILY VITAMIN D 25-HYDROXY [REFLAB] DAILY 07/30/23 Lunch Clear Liquid Diet [DIET] 07/30/23 Dinner Carb-controlled Diet [DIET] 07/30/23 21:00 guaiFENesin [Mucinex] 1,200 mg PO BID Subjective - Subjective Patient Reports: Feeling Better, Resting Comfortably, No Complaints Objective Vital Signs: Vital Signs - 24 hr 07/29/23 07/29/23 07/29/23 13:31 13:50 14:33 Temperature 36.5 C Heart Rate 111 H Heart Rate [ 106 H 105 H Monitoring electrodes] Respiratory 36 H 29 H 30 H Rate Blood Pressure 124/85 H Blood Pressure 118/76 118/94 H [Left Brachial artery] O2 Saturation 93 94 96 If not protocol 2 4 4 : Oxygen Flow, liters/minute 07/29/23 07/29/23 07/29/23 15:00 16:00 17:00 Temperature Heart Rate Heart Rate [ 112 H 119 H 107 H Monitoring electrodes] Respiratory 17 18 19 Rate Blood Pressure Blood Pressure 121/103 H 107/79 121/90 H [Left Brachial artery] O2 Saturation 96 96 97 If not protocol 4 4 4 : Oxygen Flow, liters/minute 07/29/23 07/29/23 07/29/23 17:42 18:00 19:00 Temperature 36.6 C Heart Rate Heart Rate [ 107 H 102 H Monitoring electrodes] Respiratory 16 15 Rate Blood Pressure Blood Pressure 126/79 129/76 [Left Brachial artery] O2 Saturation 97 97 If not protocol 4 4 : Oxygen Flow, liters/minute 07/29/23 07/29/23 07/29/23 20:00 21:00 22:00 Temperature 36.8 C Heart Rate Heart Rate [ 102 H 99 103 H Monitoring electrodes] Respiratory 29 H 31 H 25 H Rate Blood Pressure Blood Pressure 117/84 H 116/87 H 127/104 H [Left Brachial artery] O2 Saturation 94 94 95 If not protocol 4 4 4 : Oxygen Flow, liters/minute 07/29/23 07/30/23 07/30/23 23:00 00:00 01:00 Temperature 36.9 C Heart Rate Heart Rate [ 98 91 95 Monitoring electrodes] Respiratory 20 23 17 Rate Blood Pressure Blood Pressure 113/78 115/79 122/81 H [Left Brachial artery] O2 Saturation 94 95 96 If not protocol 4 4 4 : Oxygen Flow, liters/minute 07/30/23 07/30/23 07/30/23 02:00 03:00 04:00 Temperature Heart Rate Heart Rate [ 86 82 83 Monitoring electrodes] Respiratory 21 21 17 Rate Blood Pressure Blood Pressure 132/89 H 122/84 H 135/75 H [Left Brachial artery] O2 Saturation 98 95 96 If not protocol 4 4 4 : Oxygen Flow, liters/minute 07/30/23 07/30/23 07/30/23 05:00 06:00 07:00 Temperature 36.7 C Heart Rate Heart Rate [ 86 75 81 Monitoring electrodes] Respiratory 13 15 22 Rate Blood Pressure Blood Pressure 113/78 136/87 H 151/89 H [Left Brachial artery] O2 Saturation 98 95 97 If not protocol 4 4 4 : Oxygen Flow, liters/minute 07/30/23 07/30/23 07/30/23 08:00 09:00 10:00 Temperature 36.9 C Heart Rate Heart Rate [ 80 85 83 Monitoring electrodes] Respiratory 22 15 18 Rate Blood Pressure Blood Pressure 112/70 113/78 120/63 [Left Brachial artery] O2 Saturation 96 91 L 100 If not protocol 4 : Oxygen Flow, liters/minute 07/30/23 07/30/23 11:00 12:00 Temperature 37.1 C Heart Rate Heart Rate [ 87 85 Monitoring electrodes] Respiratory 17 23 Rate Blood Pressure Blood Pressure 130/81 H 120/63 [Left Brachial artery] O2 Saturation 96 96 If not protocol : Oxygen Flow, liters/minute Oxygen O2 Source Room air Oxygen Flow Rate 2 I&O (Last 24 Hrs): Intake and Output Totals x24h 07/28/23 07/29/23 07/30/23 23:59 23:59 23:59 Intake Total 5253.241 3717.000 Output Total 300 700 Balance 4953.241 3017.000 General: Alert, Oriented x3 Neuro: Alert Cardiovascular: Regular rate, Normal S1, Normal S2 Respiratory: Breath sounds nml Abdomen: Normal bowel sounds, Soft - Results Results: Laboratory Results WBC 13.8 x10^3/uL (4.8-10.8) H 07/30/23 04:47 RBC 4.31 10^6/uL (4.70-6.10) L 07/30/23 04:47 Hgb 13.4 g/dL (14.0-18.0) L 07/30/23 04:47 Hct 41.4 % (42.0-52.0) L 07/30/23 04:47 MCV 96.1 fL (80.0-94.0) H 07/30/23 04:47 MCH 31.1 pg (27.0-31.0) H 07/30/23 04:47 MCHC 32.4 g/dL (32.0-36.0) 07/30/23 04:47 RDW 13.2 % (12.0-15.0) 07/30/23 04:47 Plt Count 247 10^3/uL (130-450) 07/30/23 04:47 MPV 10.8 fL (7.4-11.4) 07/30/23 04:47 Neut # (Auto) 11.0 10^3/uL (1.5-6.6) H 07/30/23 04:47 Lymph # (Auto) 2.3 10^3/uL (1.5-3.5) 07/30/23 04:47 [place] # (Auto) 0.3 10^3/uL (0.0-1.0) 07/30/23 04:47 Eos # (Auto) 0.0 10^3/uL (0.0-0.7) 07/30/23 04:47 Baso # (Auto) 0.0 10^3/uL (0.0-0.1) 07/30/23 04:47 Absolute Nucleated RBC 0.00 x10^3/uL 07/30/23 04:47 Nucleated RBC % 0.0 /100WBC 07/30/23 04:47 VBG pH 7.439 (7.31-7.41) H 07/30/23 04:47 VBG pCO2 39.7 mmHg (41-51) L 07/29/23 14:44 VBG pO2 37.8 mmHg (25-47) 07/29/23 14:44 VBG HCO3 23.4 mmol/L (23-28) 07/29/23 14:44 VBG Total CO2 24.7 mmol/L (24-29) 07/29/23 14:44 VBG O2 Saturation 76.5 % (60-80) 07/29/23 14:44 VBG Base Excess -1.3 mmol/L (-2 - +2) 07/29/23 14:44 Ionized Calcium 1.04 mmol/L (1.15-1.33) L 07/30/23 04:47 Sodium 148 mmol/L (135-145) H 07/30/23 04:47 Potassium 4.0 mmol/L (3.5-4.5) 07/30/23 04:47 Chloride 114 mmol/L (101-111) H 07/30/23 04:47 Carbon Dioxide 29 mmol/L (21-32) 07/30/23 04:47 Anion Gap 5.0 (6-13) L 07/30/23 04:47 BUN 35 mg/dL (6-20) H 07/30/23 04:47 Creatinine 1.3 mg/dL (0.6-1.3) 07/30/23 04:47 Estimated GFR (MDRD) 57 (>89) L 07/30/23 04:47 Glucose 156 mg/dL (74-104) H 07/30/23 04:47 POC Whole Bld Glucose 160 mg/dL (70 - 100) H 07/30/23 11:43 Estimat Average Glucose 332 mg/dL (70-100) H 07/29/23 12:52 Hemoglobin A1c % 13.2 % (4.27-6.07) H 07/29/23 12:52 Lactic Acid 3.5 mmol/L (0.5-2.2) H* 07/29/23 10:55 Calcium 9.2 mg/dL (8.5-10.3) 07/30/23 04:47 Phosphorus 4.4 mg/dL (2.5-5.0) 07/30/23 04:47 Magnesium 1.9 mg/dL (1.7-2.3) 07/30/23 04:47 Total Bilirubin 0.7 mg/dL (0.2-1.0) 07/29/23 10:55 AST 34 IU/L (10-42) 07/29/23 10:55 ALT 38 IU/L (10-60) 07/29/23 10:55 Alkaline Phosphatase 163 IU/L (42-121) H 07/29/23 10:55 Troponin I High Sens 58.3 ng/L (2.3-19.7) H* 07/30/23 04:47 B-Natriuretic Peptide 42 pg/mL (5-100) 07/29/23 10:55 Total Protein 7.9 g/dL (6.4-8.9) 07/29/23 10:55 Albumin 4.3 g/dL (3.2-5.5) 07/29/23 10:55 Globulin 3.6 g/dL (2.1-4.2) 07/29/23 10:55 Albumin/Globulin Ratio 1.2 (1.0-2.2) 07/29/23 10:55 Lipase 84 U/L (11-82) H 07/29/23 10:55 Free PSA 0.225 ng/mL (0.16-2.81) 07/30/23 09:06 % Free PSA 29 % (25-100) 07/30/23 09:06 Total PSA 0.772 ng/mL (0.000-2.000) 07/30/23 09:06 Urine Color LIGHT YELLOW 07/29/23 11:05 Urine Clarity CLEAR (CLEAR) 07/29/23 11:05 Urine pH 6.0 PH (5.0-7.5) 07/29/23 11:05 Ur Specific [place] <=1.005 (1.002-1.030) 07/29/23 11:05 Urine Protein NEGATIVE mg/dL (NEGATIVE) 07/29/23 11:05 Urine Glucose (UA) >=1000 mg/dL (NEGATIVE) H 07/29/23 11:05 Urine Ketones TRACE mg/dL (NEGATIVE) 07/29/23 11:05 Urine Occult Blood LARGE (NEGATIVE) H 07/29/23 11:05 Urine Nitrite NEGATIVE (NEGATIVE) 07/29/23 11:05 Urine Bilirubin NEGATIVE (NEGATIVE) 07/29/23 11:05 Urine Urobilinogen 0.2 (NORMAL) E.U./dL (NORMAL) 07/29/23 11:05 Ur Leukocyte Esterase NEGATIVE (NEGATIVE) 07/29/23 11:05 Urine RBC 0-5 /HPF (0-5) 07/29/23 11:05 Urine WBC 0-3 /HPF (0-3) 07/29/23 11:05 Ur Squamous Epith Cells FEW Squamous (<= Few) 07/29/23 11:05 Urine Bacteria Few /HPF (None Seen) 07/29/23 11:05 Ur Microscopic Review INDICATED 07/29/23 11:05 Urine Culture Comments NOT INDICATED 07/29/23 11:05 Nasal Adenovirus (PCR) NOT DETECTED 07/29/23 10:45 Nasal B. parapertussis DNA (PCR) NOT DETECTED 07/29/23 10:45 Nasal Coronavir 229E PCR NOT DETECTED 07/29/23 10:45 Nasal Coronavir HKU1 PCR NOT DETECTED 07/29/23 10:45 Nasal Coronavir NL63 PCR NOT DETECTED 07/29/23 10:45 Nasal Coronavir OC43 PCR NOT DETECTED 07/29/23 10:45 Nasal Enterovir/Rhinovir PCR NOT DETECTED 07/29/23 10:45 Nasal Influ A H1 2009 PCR DETECTED A 07/29/23 10:45 Nasal Influenza B PCR NOT DETECTED 07/29/23 10:45 Nasal Parainfluen 1 PCR NOT DETECTED 07/29/23 10:45 Nasal Parainfluen 2 PCR NOT DETECTED 07/29/23 10:45 Nasal Parainfluen 3 PCR NOT DETECTED 07/29/23 10:45 Nasal Parainfluen 4 PCR NOT DETECTED 07/29/23 10:45 Nasal RSV (PCR) NOT DETECTED 07/29/23 10:45 Nasal Screen MRSA (PCR) NEGATIVE (NEGATIVE) 07/29/23 14:00 Nasal B.pertussis DNA PCR NOT DETECTED 07/29/23 10:45 Nasal C.pneumoniae (PCR) NOT DETECTED 07/29/23 10:45 Marlon Human Metapneumo PCR NOT DETECTED 07/29/23 10:45 Nasal M.pneumoniae (PCR) NOT DETECTED 07/29/23 10:45 Nasal SARS-CoV-2 (PCR) NOT DETECTED 07/29/23 10:45 Salicylates < 1.5 mg/dL 07/29/23 10:55 Urine Opiates Screen NEGATIVE (NEGATIVE) 07/29/23 16:30 Ur Buprenorphine Scrn NEGATIVE (NEGATIVE) 07/29/23 16:30 Ur Oxycodone Screen NEGATIVE (NEGATIVE) 07/29/23 16:30 Urine Methadone Screen NEGATIVE (NEGATIVE) 07/29/23 16:30 Acetaminophen 0.2 ug/mL 07/29/23 10:55 Ur Barbiturates Screen NEGATIVE (NEGATIVE) 07/29/23 16:30 Ur Tricyclics Screen NEGATIVE (NEGATIVE) 07/29/23 16:30 Ur Phencyclidine Scrn NEGATIVE (NEGATIVE) 07/29/23 16:30 Ur Amphetamine Screen NEGATIVE (NEGATIVE) 07/29/23 16:30 U Methamphetamines Scrn NEGATIVE (NEGATIVE) 07/29/23 16:30 U Benzodiazepines Scrn NEGATIVE (NEGATIVE) 07/29/23 16:30 Urine Cocaine Screen NEGATIVE (NEGATIVE) 07/29/23 16:30 U Cannabinoids Screen NEGATIVE (NEGATIVE) 07/29/23 16:30 Ur Drug Screen Comment CUTOFF CONC BELOW: 07/29/23 16:30 Ethyl Alcohol < 10.0 mg/dL 07/29/23 10:55 Serum Ketones NEGATIVE (NEGATIVE) 07/30/23 04:47
--- NOTE | 2023-07-30 15:32 | CT Report ---
PROCEDURE: Abdomen/Pelvis W INDICATIONS: Hypercalcemia, hematuria, dysphagia. R/O malignancy CONTRAST: Omni 300 100ml TECHNIQUE: After the administration of intravenous contrast, a CT scan of the abdomen and pelvis was performed. Images were recorded and evaluated at appropriate window settings. Reformats: coronal and sagittal. F or radiation dose reduction, the following was used: automated exposure control, adjustment of mA and /or kV according to patient size. COMPARISON: CT pulmonary angiogram 07/30/2023. FINDINGS: Image quality: Diagnostic. Lower chest: Dependent atelectasis. No pleural effusion. Liver: No solid mass. Gallbladder and biliary tree: No obvious stones. No biliary ductal dilatation. Spleen: No splenomegaly. Pancreas: No pancreatic ductal dilation. Adrenals: No adrenal nodule. Kidneys and ureters: No hydronephrosis. Small nonobstructive right kidney stones. Largest measuring a pproximately 0.6 cm. No renal cystic lesion which requires follow up. No solid mass. Stomach, bowel and peritoneum: No bowel distension. No pathologic free fluid. Diverticulosis. The laurita endix is absent. Lymph nodes: No central or retroperitoneal adenopathy. Small perigastric node measuring 0.7 cm, (6/ ). Vessels: No infrarenal aortic aneurysm. PELVIS Reproductive organs: Unremarkable. Bladder: No abnormal wall thickening, accounting for underdistention. Pelvic lymph nodes: No pelvic adenopathy by size criteria. Bones: No aggressive osseous abnormality. Other: Fat-containing left internal hernia. Possible fat-containing right inguinal hernia. IMPRESSION: 1. No hydronephrosis. Small nonobstructing right kidney stones. 2. No solid renal mass. 3. No mass identified. No enlarged lymph nodes. Small perigastric node measuring 0.7 cm. Reviewed by: Raúl Rodriguez MD on 07/30/2023 3:30 PM PDT Approved by: Raúl Rodriguez MD on 07/30/2023 3:30 PM PDT Station ID: [id number]
[2023-07-30 16:20] LABS: CREATININE,URINE 91.7 mg/dL; MICROALBUM/CREATININE RATIO,UR 73.1 ug/mg (<30.0); MICROALBUMIN,URINE 6.7 mg/dL
--- NOTE | 2023-07-30 17:13 | CT Report ---
PROCEDURE: Soft Tissue Neck W INDICATIONS: severe hoarse voice for 3 months CONTRAST: Omni 300 100ml TECHNIQUE: After the administration of intravenous contrast, 3.0 mm axial sections acquired from the sella to th e aortic arch. Additional oblique axial 3.0 mm sections acquired through the pharynx. 3 mm thick co melania reformats were generated. For radiation dose reduction, the following was used: automated exp osure control, adjustment of mA and/or kV according to patient size. COMPARISON: None. FINDINGS: Image quality: Excellent. Lymph nodes: No enlarged lymph nodes seen throughout the neck. Vessels: Visualized vasculature appears patent. Neck spaces: The oropharynx, nasopharynx, and pharynx demonstrate no mucosal lesions. The vocal cor ds, false vocal cords, pyriform sinuses, epiglottis, vallecula, and tongue base all appear normal. E xtramucosal spaces appear unremarkable. Glands: Prominent palatine tonsils bilaterally with tonsilliths. The parotid and submandibular gland s appear normal. The thyroid is normal in size and there are no incidental findings. Miscellaneous: Visualized brain and orbits appear normal. Lung apices appear clear. Superficial so ft tissues appear normal. Bones: No suspicious bony lesions. Degenerative changes of the spine. Visualized sinuses and mastoid s appear unremarkable. IMPRESSION: 1.No findings to explain patient's symptoms. 2.Prominent palatine tonsils bilaterally with tonsilloliths, may represent tonsillitis. Reviewed by: Russell Salmon MD on 07/30/2023 5:12 PM PDT Approved by: Russell Salmon MD on 07/30/2023 5:12 PM PDT Station ID: [id number]
[2023-07-30] MEDS ORDERED: INSULIN GLARGINE-YFGN 300 UNIT/3 ML PEN SUBQ SCH (21:00)
[2023-07-30] MEDS: ATORVASTATIN 40 MG TABLET PO SCH (21:32)
[2023-07-30] MEDS: guaiFENesin 600 MG TABLET PO SCH (21:32)
[2023-07-31 04:50] LABS: BASOPHILS % (AUTO) 0.3 %; EOSINOPHILS % (AUTO) 0.2 %; HGB - HEMOGLOBIN 12.7 g/dL (14.0-18.0); LYMPHOCYTES # (AUTO) 3.2 10^3/uL (1.5-3.5); LYMPHOCYTES % (AUTO) 35.7 %; MEAN CORPUSCULAR HEMOGLOBIN 30.8 pg (27.0-31.0); MEAN CORPUSCULAR HGB CONC 32.6 g/dL (32.0-36.0); MEAN CORPUSCULAR VOLUME 94.7 fL (80.0-94.0); MEAN PLATELET VOLUME 11.1 fL (7.4-11.4); MONOCYTES # (AUTO) 0.4 10^3/uL (0.0-1.0); MONOCYTES % (AUTO) 4.8 %; NEUTROPHILS # (AUTO) 5.3 10^3/uL (1.5-6.6); NEUTROPHILS % (AUTO) 58.8 %; PLT - PLATELET COUNT 195 10^3/uL (130-450); RED BLOOD COUNT 4.12 10^6/uL (4.70-6.10); RED CELL DISTRIBUTION WIDTH 12.9 % (12.0-15.0)
[2023-07-31 05:08] LABS: PHOSPHORUS 4.1 mg/dL (2.5-5.0)
[2023-07-31 05:20] LABS: VBG PH 7.458 (7.31-7.41)
[2023-07-31 05:24] LABS: CHOL/HDL RATIO 8.7 (<5.0); CHOLESTEROL 191 mg/dL; HDL CHOLESTEROL 22 mg/dL; LDL CHOLESTEROL,CALCULATED 106 mg/dL; LDL/HDL RATIO 4.8 (<3.6); TRIGLYCERIDES 313 mg/dL (48-352); VLDL CHOLESTEROL 63 mg/dL
[2023-07-31 05:47] LABS: CALCIUM 8.5 mg/dL (8.5-10.3); CREATININE 0.9 mg/dL (0.6-1.3); POTASSIUM 4.1 mmol/L (3.5-4.5)
[2023-07-31] MEDS: CALCIUM CARBONATE CHEW 500 MG TABLET PO SCH (06:37)
[2023-07-31] MEDS: INSULIN GLARGINE-YFGN 300 UNIT/3 ML PEN SUBQ SCH (08:05)
[2023-07-31] MEDS: metFORMIN 500 MG TABLET PO SCH (11:14)
[2023-07-31] MEDS: INSULIN LISPRO 300 UNIT/3 ML PEN SUBQ SCH (11:52)
[2023-07-31 13:23] VITALS: BP 113/70; O2SAT 95
[2023-07-31 14:37] LABS: CALCIUM, IONIZED 1.11 mmol/L (1.15-1.33); VBG PH 7.442 (7.31-7.41)
--- NOTE | 2023-07-31 15:19 | Discharge Plan ---
Discharge Plan Problem Reviewed?: Yes Disposition: Home, Self Care Condition: Good Prescriptions: Blood-Glucose Meter [Glucometer] 1 each QID #1 each Blood Sugar Diagnostic [Glucometer Strips] 1 each QID #100 strip metFORMIN [Glucophage] 500 mg PO BIDWM 90 Days #180 tab Insulin Lispro [Humalog Kwikpen U-100] 10 unit SUBQ TIDWM #30 ml Pen Needle, Diabetic [Insulin Pen Needle] 1 each QID #100 ea Atorvastatin [Lipitor] 20 mg PO QPM #90 tab Pantoprazole [Protonix] 40 mg PO QDAC #90 tab Insulin Glargine-Yfgn [Semglee] 40 unit SUBQ DAILY #30 ml Oseltamivir [Tamiflu] 75 mg PO BID #8 cap Diet: Diabetic Activity Restrictions: No Restrictions Instruction Topics: Hyperglycemia, Hypoglycemia, Blood Sugar Check, Insulin Injected, Insulin Types, Diabetes Healthy Meals, Diabetes Carbs, Diabetes Eating Out, Blood Sugar Manage Exercise, Diabetes Keep Feet Healthy, Diabetes Inspect Feet, Insulin Injection Steps, 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 Please start taking Metformin 500 mg twice daily. You can increase this to 1000 mg twice daily after 2 weeks. Please establish care with a local PCP for your insulin refills and to help titrate doses. You will need yearly diabetic eye exams. Your A1c should be checked every 3 months. Keep a close eye on your feet for any open areas. Additional Instructions or Follow Up instructions: 3. Scattered tiny 2 mm nodules in the right lung, too small to characterize, statistically likely to be benign. Comment: If patient has risk factors for malignancy, consider 12 month follow-up CT chest. No Smoking: If you smoke, Please STOP! Call for help.
--- NOTE | 2023-07-31 15:47 | DISCHARGE SUMMARY ---
Discharge Summary Admit Date: 07/29/23 Discharge Date: 07/31/23 Discharging Provider: Jamie Savage Primary Care Provider: No PCP Code Status: Attempt Resuscitation Condition at Discharge: Good Discharge Disposition: 01 Home, Self Care - DIAGNOSES Discharge Diagnoses with Status of Each Condition: (1) DKA, type 2 Qualifiers: Diabetes mellitus complication detail: without coma Qualified Code(s): E11.10 - Type 2 diabetes mellitus with ketoacidosis without coma Assessment/Plan: --On basal bolus insulin. --A1c is 13. --C-peptide is within normal limits. He is likely a type 2 diabetic. --Diabetic education completed. (2) Altered mental status Qualifiers: Altered mental status type: disorientation Qualified Code(s): R41.0 - Disorientation, unspecified Assessment/Plan: --Resolved with correction of blood glucose. (3) Hoarseness Assessment/Plan: --CT soft tissue neck and CT abd/pelvis both unremarkable. --He would benefit from an EGD as an outpatient to rule out Malcolm's esophagus and H. pylori infection. --Had a laryngoscopy in [facility] which was unremarkable. (4) Hypercalcemia Assessment/Plan: --Resolved after fluid administration. --PTH, PTHrp, Vit D pending. (5) Influenza A (H1N1) Assessment/Plan: --On Tamiflu. --Continue supportive cares. - HPI History of Present Illness: This is a gentleman who lives in one of the [facility] in [facility] and just got back July 20. He is here to visit his dad. Dad's been failing with vascular dementia. He was brought in by EMS because family has noted that his speech has become delayed. He was getting confused with words, dates, and events. The patient tells me that he is healthy. He has no history of diabetes, high blood pressure, cholesterol problems. He has never been hospitalized. He has lived in [place] for approximately 12 to 13 years. He is to an [place] national. She is unable to have children and he decided to moved to 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 They have about 45 kids. For approximately 3 months he has noted a dry mouth. A parched tongue. For about 2 months he has noted hoarseness. The only thing that would soothe his mouth was ice cream. And his thirst was quenched with lots of juice. He is also been eating a lot of fast food. He saw a friend of his in [place] who is an physician and he describes a laryngoscopy. They looked at his vocal cords and everything was "normal". He has severe increased urinary frequency. He also has incontinence and urgency. He will literally hold onto the tip of his penis and pinch it so that urine does not come out but he has not been making it to the toilet for quite some time. That started in the last 2 weeks. He denies fever, chills. He has had a phlegmy cough for a few days. The cough is occasionally quite copious. He is hoarseness comes and goes depending on the cough. For a few moments his voice will clear even though he speaks with a laryngitic tone, but then it completely disappears when the phlegm comes. There is been no unexpected weight changes with this. No sweats, no fevers. He acknowledges that his mentation is not correct. He says he has been struggling with words. But he denies focal deficits. Denies facial dysesthesias. His legs are numb but they have been numb "forever" but he cannot remember why. He his belly feels full and distended. Feels like he has not a bowel movement in a few days. But no abdominal pain. EMS brought him to the emergency room when family was concerned. Temperature was 36.7, heart rate 117, blood pressure 116/82, respirations 16 and he is 96% saturated on room air. He is a 6 foot tall white male, well-groomed, well-nour ished, 102.5 kg. His main fixation is water. He cannot get enough water and ice. The ER provider described him as well-nourished well-developed. Alert and oriented x 3. Confused on the month but not the year. She describes moist mucous membranes but I find and be very dry. Supple neck. Tachycardic. Clear lungs. A soft nontender abdomen. Nondistended with normal bowel sounds. No calf tenderness. White cell count is 11.4. Hemoglobin 15.4. Platelets 280. Potassium 5.0. BUN 42, creatinine 1.7. Glucose is 1138. Lactic acid 3.5. Calcium 11.5. Magnesium 2.8. Troponin 23.9. Lipase 84. Urinalysis ask glucosuria, occult blood, trace ketones. No bacteria. No culture will be done. Venous blood gas has a pH of 7.34, pCO2 42, bicarb 22 base excess -2.9. Viral panel swab is positive for influenza A. Toxicology screen is negative for opiates, barbiturates, amphetamines, ca nnabinoids, ethyl alcohol, and serum ketones are small amount. Chest x-ray has patchy bibasilar atelectasis versus pneumonia. They are recommending a repeat film until he is clear. Head CT was done because of the altered mental status and there is no acute intracranial pathology. Because of altered mental status with hypoxia in the ER a chest CT with pulmonary angiogram was done. No PEs. No consolidation or effusions or pneumothorax. Small scattered 2 mm nodules in the right lung. - HOSPITAL COURSE Hospital Course: Patient is a 57-year-old male who presented to the ED due to complaints of confusion. Upon presentation he was noted to have a glucose of 1138 with lactic acidosis and urine ketones. He also tested positive for influenza A. He was admitted and started on IV insulin due to a presumed diagnosis of DKA/HHS. A1c returned 13.2. He was also hypoxic requiring 2 L of oxygen. He was started on Tamiflu. His mentation improved significantly after IV hydration and insulin and he was eventually transitioned to basal bolus insulin. C-peptide was ordered which came back at 1.2 to suggest that he was a type II diabetic. He was therefore started on metformin 500 mg twice daily. We also started him on atorvastatin 20 mg daily as he drinks quite a bit of grapefruit juice which can interact with the metabolism of statins. He was normotensive therefore he was not started on lisinopril but this can be considered as an outpatient at a low-dose of 2.5 mg daily. Patient was subsequently discharged on long-acting insulin 40 units with short acting boluses of 10 units with each meal. I did instruct him to find a PCP to help manage his insulin. Patient spends a significant part of the year in [place] but I did stressed the importance of yearly diabetic eye exams and an A1c every 3 months. He was also educated on proper footcare. We also discussed the importance of smoking cessation due to high risk of CVA and MO. Of note, patient did exhibit dysphagia. He stated that he had a laryngeal scope he while in [place] which was unremarkable. I started him on pantoprazole 40 mg daily for his GERD. A CT soft tissue neck and CT abdomen/pelvis were performed which were unremarkable. He would likely benefit from an outpatient EGD to help rule out H. pylori. - ALLERGIES Allergies/Adverse Reactions: Allergies Allergy/AdvReac Type Severity Reaction Status Date / Time Penicillins Allergy Severe Anaphylaxis Verified 07/29/23 15:45 bee venom protein (honey bee) Allergy Intermediate Hives Verified 07/29/23 15:46 - MEDICATIONS Home Medications: Ambulatory Orders Medication Instructions Recorded Confirmed Atorvastatin [Lipitor] 20 mg PO QPM #90 tab 07/31/23 Blood Sugar Diagnostic [Glucometer 1 each QID #100 strip 07/31/23 Strips] Blood-Glucose Meter [Glucometer] 1 each QID #1 each 07/31/23 Insulin Glargine-Yfgn [Semglee] 40 unit SUBQ DAILY #30 ml 07/31/23 Insulin Lispro [Humalog Kwikpen 10 unit SUBQ TIDWM #30 ml 07/31/23 U-100] Oseltamivir [Tamiflu] 75 mg PO BID #8 cap 07/31/23 Pantoprazole [Protonix] 40 mg PO QDAC #90 tab 07/31/23 Pen Needle, Diabetic [Insulin Pen 1 each MC QID #100 ea 07/31/23 Needle] metFORMIN [Glucophage] 500 mg PO BIDWM 90 Days #180 tab 07/31/23 - PHYSICAL EXAM AT DISCHARGE General Appearance: positive: No acute distress, Alert Respiratory: positive: No respiratory distress, Breath sounds nml. negative: Wheezes Cardiovascular: positive: Regular rate & rhythm, No murmur, No gallop Abdomen: positive: Non-tender. negative: No distention Skin: positive: Color nml Extremities: positive: Nml appearance Neurologic/Psychiatric: positive: Oriented x3, CN's nml (2-12) - LABS Result Diagrams: 07/31/23 04:25 07/31/23 04:25 - FOLLOW UP Follow Up: Patient to establish care with a PCP. - TIME SPENT Time Spent in Discharge (Minutes): 35
[2023-07-31] MEDS ORDERED: ATORVASTATIN 10 MG TABLET PO SCH (21:00)
== END 2023-07-31 16:53 | disposition home or self-care (01) | DRG 637 ==
LOC: EDUNIT# → ED 10:28 → ICU 13:05
PROVIDERS: ADMIT Specialist; ATTEND Family Medicine
DX: E11.10 Type 2 diabetes mellitus with ketoacidosis without coma (principal); J96.01 Acute respiratory failure with hypoxia; B37.49 Other urogenital candidiasis; E86.0 Dehydration; E83.52 Hypercalcemia; J10.1 Influenza due to other identified influenza virus with other respiratory manifestations; R49.0 Dysphonia; R13.10 Dysphagia, unspecified; R91.8 Other nonspecific abnormal finding of lung field; L30.4 Erythema intertrigo; N39.490 Overflow incontinence; N39.41 Urge incontinence; R79.89 Other specified abnormal findings of blood chemistry; R41.0 Disorientation, unspecified; F17.210 Nicotine dependence, cigarettes, uncomplicated; Z11.52 Encounter for screening for COVID-19; Z86.16 Personal history of COVID-19; Z83.3 Family history of diabetes mellitus; Z87.09 Personal history of other diseases of the respiratory system
CPT/HCPCS: 36415; 70450; 70491; 71045; 71275; 74177; 80048; 80053; 80061; 80143; 80179; 80306; 81001; 82009; 82043; 82077; 82306; 82330; 82397; 82570; 82652; 82803; 82947; 83036; 83605; 83690; 83735; 83880; 84100; 84132; 84153; 84154; 84484; 84681; 85025; 87040; 87150; 87633; 93005; 99285; 99291; A9270; J1650; J1815; Q9967; 81003; 83721; 87086

== ENCOUNTER 2023-08-11 14:37 | Outpatient (CLI) | payer MEDICAID ==
[2023-08-11 15:28] LABS: THYROID STIMULATING HORMONE 1.68 uIU/mL (0.34-5.60)
== END 2023-08-11 14:38 | disposition home or self-care (01) ==
LOC: LAB 14:37
PROVIDERS: ATTEND Nurse Practitioner Family
DX: R22.1 Localized swelling, mass and lump, neck (principal); Z13.29 Encounter for screening for other suspected endocrine disorder
CPT/HCPCS: 36415; 84439; 84443

== ENCOUNTER 2023-08-18 13:50 | Outpatient (CLI) | payer MEDICAID | END 2023-08-18 13:51 | disposition home or self-care (01) | LOC: DI 13:50 | PROVIDERS: ATTEND Nurse Practitioner Family | DX: Z53.9 Procedure and treatment not carried out, unspecified reason (principal) ==